=== PATIENT | female | born 1945 | race Caucasian/White ===

== ENCOUNTER → 2021-03-13 | Outpatient (CLI) | payer OTHER | LOC: CAT 12:49 | PROVIDERS: ATTEND Internal Medicine | DX: Z13.6 Encounter for screening for cardiovascular disorders (principal); I25.10 Atherosclerotic heart disease of native coronary artery without angina pectoris; E78.00 Pure hypercholesterolemia, unspecified ==

== ENCOUNTER → 2021-03-25 | Outpatient (CLI) | payer OTHER, MEDICARE | LOC: SJCVCIMAG 11:21 | PROVIDERS: ATTEND Internal Medicine | DX: R00.0 Tachycardia, unspecified (principal); I49.3 Ventricular premature depolarization; I10 Essential (primary) hypertension; I25.10 Atherosclerotic heart disease of native coronary artery without angina pectoris; I25.84 Coronary atherosclerosis due to calcified coronary lesion; R06.00 Dyspnea, unspecified; E78.5 Hyperlipidemia, unspecified; Z13.220 Encounter for screening for lipoid disorders; Z87.891 Personal history of nicotine dependence; Z79.899 Other long term (current) drug therapy ==

== ENCOUNTER → 2021-04-30 | Outpatient (CLI) | payer OTHER, MEDICARE ==
[~2021-04-30] VITALS: Ht 170.2 cm; Wt 104.8 kg
[~2021-04-30] MED LIST: FIBER GUMMIES1 EACH PO; HYZAAR 50-12.51 EACH PO; LOPERAMIDE 2 MG2 M1 PO; PROAIR HFA8.5 GM INH; REQUIP 1 MG TABL1 M1 PO; VITAMIN D350 MC3 PO; ZANAFLEX2 M1 PO
[2021-04-30 10:05] VITALS: BP 140/77
[2021-04-30 11:54] LABS: ABSOLUTE NEUTROPHILS 4.5 thou/uL (1.4-8.2); BASOPHILS 0.8 % (0.0-2.0); EOSINOPHILS 1.6 % (0.0-3.0); HEMATOCRIT 38.1 % (37.0-47.0); HEMOGLOBIN 12.5 gm/dL (12.0-15.0); LYMPHOCYTES 21.3 % (24.0-44.0); MCH 28.3 pg (26.0-34.0); MCHC 32.7 g/dL (28.0-37.0); MCV 86.3 fL (80.0-100.0); MONOCYTES 6.8 % (1.0-8.0); PLATELET COUNT 235 thou/uL (150-400); POLYS 69.5 % (36.0-66.0); RBC 4.41 mil/uL (4.20-5.00); RDW 15.5 % (10.5-14.5); WBC 6.4 thou/uL (4.0-11.0)
[2021-04-30 12:02] LABS: CALCIUM 8.7 mg/dL (8.5-10.1); CREATININE 0.9 mg/dL (0.6-1.0); POTASSIUM 3.3 mmol/L (3.5-5.1)
--- NOTE | 2021-05-06 13:08 | CATHLAB ---
[facility] [place] [address] INVASIVE PROCEDURE REPORT Name: RIGO BURRELL Room #: REG BOB Gaby#: [id number] Admission: 04/30/21 Attend Phys: Mau Liu Discharge: Date of : 45 Report #: [id number] THIS REPORT FOR: cc: MARYLOU GUAN FAMILY PHYSICIAN or PCP Mau Liu MD ~ APPROVED REPORT Study performed: 04/30/2021 11:38:11 Patient Details Patient Status: Out-Patient Room #: The patient is a 76 year-old female Event Personnel Mau Liu Form Worker, Marielos Waggoner RN RN, Nadia Shepard RTR Scrub, Felicia Brunner Monitor Procedures Performed Art Access - R femoral artery* Srinivasa Access - R femoral vein Right and Left Heart Cath w/or w/o Coronarie [id number] [facility] [id number] Initial Mod Sed Same Phys/QHP Gr5y [id number] Mod Sed Same Phys/QHP Ea [id number] Hemostasis with Manual pressure, supervision of conscious sedation Indication Dyspnea, Positive stress test, Chest pain Procedure Narrative The Right Groin^ was infiltrated with subcutaneous anesthesia. A PINNACLE 4FR Sheath #[id number] sheath was inserted into the RFA^. Coronary angiography was performed using coronary diagnostic catheters. The right coronary system was accessed and visualized with a JR4 catheter. The left coronary system was accessed and visualized with a JL4 catheter. The left ventricle was accessed and visualized with a ANGLE PIG catheter. The patient tolerated the procedure well and there were no complications associated with the procedure. Intraoperative Conscious Sedation Sedation start time: 1205 Case end Time: 1300 Versed 3 mg Fluoro Time: 4.28 minutes [facility] [place] [address] INVASIVE PROCEDURE REPORT Name: RIGO BURRELL Room #: REG [facility]#: [id number] Admission: 04/30/21 Attend Phys: Mau Rosenthal Discharge: Date of : 45 Report #: [id number] Dose: DAP 4921.20 cGycm2 498 mGy Contrast Type and Amount: Omnipaque 45 ml Coronary Angiography The patient's coronary anatomy is right dominant. Diagnostic Cath Left Main Large-caliber vessel normal origin bifurcates left anterior descending the circumflex free of high-grade disease LAD Moderate to large caliber type III vessel coursing the interventricular sulcus giving rise to septal diagonal branches. No irregularities are noted until the distal third where it rapidly tapers to a small diffusely irregular vessel prior to hooking the apex and terminating at inferior apical wall. Diagonal 1 Small to moderate caliber vessel without significant high-grade lesion but an eccentric ostial lesion of approximately 50% Diagonal 2 Diminutive vessel without significant lesion Diagonal 3 Diminutive size vessel without significant stenosis Circumflex Large-caliber vessel courses in the AV groove giving rise to a large marginal branch of course on the lateral aspect left ventricle. It then continues on with the inferolateral posterior marginal branch free of high-grade disease and terminates as a small posterior atrial branch. No high-grade lesions are noted OM1 Large-caliber bifurcating vessel without significant stenosis OM2 Large-caliber vessel with out irregularities but quite tortuous in its course Right Coronary Large-caliber dominant vessel which rapidly tapers to moderate size prior to reaching the acute margin. A small caliber RV marginal branch arises at this point and is free of high-grade disease. The vessel then continues posteriorly to the crux of the heart gives rise to small caliber posterior descending artery free of high-grade disease Left Ventriculography Left Ventriculography was not performed. Hemodynamics The right atrial mean pressure is 7 mmHg. The right ventricular pressure is 33/3 mmHg. The pulmonary artery pressure is 28/15 mmHg with a mean of 20 mmHg. The mean pulmonary capillary wedge pressure is 9 mmHg. The aortic pressure is 117/73 mmHg with a mean of 98 mmHg. The left ventricular pressure is 109/6 mmHg with a mean of mmHg. [facility] [address] [place] [address] INVASIVE PROCEDURE REPORT Name: RIGO BURRELL Room #: REG KAYODE Griffin#: [id number] Admission: 04/30/21 Attend Phys: Mau Rosenthal Discharge: Date of : 45 Report #: [id number] left ventricular end diastolic pressure is 18 mmHg. The cardiac output using thermo method is 5.43 L/min. The cardiac index using thermo method is 2.53 L/min/m2. Conclusion 1. Coronary artery disease nonobstructive 2. Normal hemodynamics without evidence of significant pulmonary hypertension 3. Satisfactory cardiac output and index Recommendations Cardiac Risk Reduction Program Medical Therapy <ELECTRONICALLY SIGNED> By: Mau Liu MD 05/06/21 1308 1308 1308 Mau Liu MD /INF
== END | disposition home or self-care (01) ==
LOC: CATH 06:58
PROVIDERS: ATTEND Internal Medicine
DX: R07.9 Chest pain, unspecified (principal); I25.10 Atherosclerotic heart disease of native coronary artery without angina pectoris; R94.39 Abnormal result of other cardiovascular function study; R06.00 Dyspnea, unspecified; G47.33 Obstructive sleep apnea (adult) (pediatric); Z98.890 Other specified postprocedural states; Z79.899 Other long term (current) drug therapy; Z96.651 Presence of right artificial knee joint; Z87.891 Personal history of nicotine dependence; Z98.0 Intestinal bypass and anastomosis status; Z88.8 Allergy status to other drugs, medicaments and biological substances

== ENCOUNTER → 2021-05-17 | Outpatient (CLI) | payer OTHER, MEDICARE | LOC: SJCVCIMAG 09:12 | PROVIDERS: ATTEND Internal Medicine | DX: M79.605 Pain in left leg (principal) ==